=== PATIENT | female | born 1990 | race Caucasian/White ===

== ENCOUNTER 2019-11-25 12:10 | Emergency (ER) | payer OTHER, MEDICAID ==
[2019-11-25] MEDS ORDERED: Ketorolac Tromethamine 30 MG/ML VIAL ONE (12:32)
[2019-11-25] MEDS ORDERED: Ondansetron ODT 4 MG TAB ONE (12:48)
[2019-11-25 12:52] LABS: Pregu Control Background? CLEAR/WHITE (CLR/WHITE); Pregu Control Bar Appear? YES (CONTROL BAR); Specific Gravity 1.023 (1.002-1.036)
[2019-11-25 12:55] LABS: Pregnancy Test - Urine (BHCG) Negative (Negative)
[2019-11-25] MEDS ORDERED: Dicyclomine 20 MG TAB ONE (13:08)
== END 2019-11-25 13:16 | disposition home or self-care (01) ==
LOC: BURERS 12:10
DX: N94.6 Dysmenorrhea, unspecified (principal); R11.2 Nausea with vomiting, unspecified; R19.7 Diarrhea, unspecified; J45.909 Unspecified asthma, uncomplicated; G43.909 Migraine, unspecified, not intractable, without status migrainosus; E03.9 Hypothyroidism, unspecified; F17.210 Nicotine dependence, cigarettes, uncomplicated
CPT/HCPCS: 81025; 96372; 99284; J1885; Q0162